=== PATIENT | female | born 1955 | race Caucasian/White ===

== ENCOUNTER 2020-07-04 08:59 | Day surgery (SDC) | payer OTHER, BC ==
[2020-06-29 14:45] VITALS: BMI 23.3
[2020-07-04] MEDS ORDERED: BUPIVACAINE HCL/PF 0.25% (2.5MG/ML) 10 ML VIAL ONE (12:00)
[2020-07-04] MEDS ORDERED: LIDOCAINE HCL 1%, 10 MG/ML (20ML VIAL) ONE (12:01)
[2020-07-04] MEDS ORDERED: MIDAZOLAM HCL 2 MG/2 ML SINGLE DOSE VIAL ONE ×2 (12:20→12:34)
[2020-07-04] MEDS ORDERED: PROPOFOL 20 ML ONE ×2 (12:22→12:54)
[2020-07-04] MEDS ORDERED: GUM MASTIC/STORAX/MSAL/ALCOHOL 1 DRP DROPSBTL MC ONE (13:19)
[2020-07-04] MEDS ORDERED: oxyCODONE HCL 5 MG TABLET PO PRN (13:34)
[2020-07-04] MEDS ORDERED: ONDANSETRON 4 MG/2 ML VIAL IVPUSH PRN ×2 (13:34→13:35)
[2020-07-04] MEDS ORDERED: ACETAMINOPHEN 1000 MG/100 ML VIAL (NON FORMULARY) IVPB ONE (13:35)
[2020-07-04] MEDS ORDERED: KETOROLAC TROMETHAMINE 30 MG/1 ML VIAL IVPUSH PRN (13:35)
[2020-07-04] MEDS ORDERED: DEXTROSE 5%-0.45% SALINE 1,000 ML IV SCH (13:45)
[2020-07-04] MEDS ORDERED: ONDANSETRON 4 MG/2 ML VIAL ONE (13:52)
[2020-07-04] MEDS ORDERED: KETOROLAC TROMETHAMINE 30 MG/1 ML VIAL ONE (14:18)
[2020-07-04 14:38] VITALS: TEMP 97.6
[2020-07-04 15:23] VITALS: BP 136/74; PULSE 62
== END 2020-07-04 15:00 | disposition home or self-care (01) ==
LOC: FASU 08:59
PROVIDERS: ATTEND Surgery Surgical Oncology
PROC: 0HBU0ZZ Excision of Left Breast, Open Approach (ICD-10-PCS; principal; 2020-07-04 12:55)
DX: N60.12 Diffuse cystic mastopathy of left breast (principal); N60.22 Fibroadenosis of left breast; N60.32 Fibrosclerosis of left breast; N64.89 Other specified disorders of breast; I49.9 Cardiac arrhythmia, unspecified; Z80.3 Family history of malignant neoplasm of breast
CPT/HCPCS: 19281; 76098-TC-FY; 88307-TC; 94760; J0131